=== PATIENT | male | born 1975 | race Native Hawaiian/Other Pacific Islander ===

== ENCOUNTER 2021-08-06 23:18 | Emergency (ER) | payer OTHER ==
[~2021-08-06] VITALS: Ht 177.8 cm; Wt 95.3 kg
[2021-08-07 00:45] LABS: PLATELET COUNT 335 K/uL (142-355)
[2021-08-07 00:49] LABS: POTASSIUM 4.2 mmol/L (3.6-5.2); SODIUM 140 mmol/L (136-145)
[2021-08-07 01:28] VITALS: BP 147/90; TEMP 97.5
== END 2021-08-07 01:28 ==
LOC: ED 23:27
PROVIDERS: Family Medicine
DX: K21.9 Gastro-esophageal reflux disease without esophagitis (principal); R07.89 Other chest pain; U07.1 COVID-19
CPT/HCPCS: 80053; 82553; 84484; 85027; 93005; 99283